=== PATIENT | female | born 1955 | race Caucasian/White ===

== ENCOUNTER → 2022-09-05 14:43 | Outpatient (REF) | payer MEDICARE, OTHER, SELFPAY ==
--- NOTE | 2022-09-05 14:49 | CA_ITS ---
Transthoracic Echocardiogram Patient (Last, First, Middle): Bettina Cotter, Gender: Female Date of : 1955 Age: 67 Procedure Date: 09/05/2022 Procedure Type: Transthoracic Echocardiogram Location: [place] Height: 175.26 cm Weight: 76.2 kg BSA: 1.92 m2 Heart Rate: bpm BP: 124 / 70 mmHg Tube Buffer: TO Referring MD: Jennifer Palmer MD [employer] Fe[employer]: Dominic Saravia MD Symptoms: SOB R06.02 Study Quality: Adequate ECG Rhythm: Sinus Conclusions: - 1. Normal LV systolic function with LVEF of 60-65% with normal filling pattern 2. Mild aortic regurgitation 3. Normal RV systolic pressure 4. Upper limits of normal ascending aortic size 5. No pericardial effusion Findings Left Ventricle Normal left ventricular size, thickness, and systolic function. The visually estimated ejection fraction is between 60-65%. Spectral Doppler is indicative of a normal filling pattern. Right Ventricle Normal right ventricular cavity size and systolic function. Atria Both atria are normal in size. There is lipomatous hypertrophy of the interatrial septum. Interatrial shunt cannot be excluded. Aortic Valve Normal aortic valve structure and function. There is no aortic valve stenosis. There is mild aortic valve regurgitation. Mitral Valve Normal mitral valve structure and function. There is trace mitral valve regurgitation. There is no mitral valve stenosis. Pulmonic Valve The pulmonic valve is likely normal. Tricuspid Valve Normal tricuspid valve structure. There is trace tricuspid valve regurgitation. The right ventricular systolic pressure is normal. The right ventricular systolic pressure is 16 mmHg. Normal right atrial pressure. There is no evidence of pulmonary hypertension. Great Vessels The pulmonary artery was not well visualized. Venous The inferior vena cava is normal in size and collapses greater than 50% with inspiration. Pericardium/Pleural There is no evidence of pericardial effusion. Prior Study Comparison No prior study available for comparison. Measurements 2D Linear Measurements IVSd: 0.90 0.6-0.9/0.6-1.0 cm LVIDd: 4.50 3.9-5.3/4.2-5.9 cm LVIDd Index: 2.34 2.4-3.2/2.2-3.1 cm/m2 LVIDs: 2.13 2.0-3.6 cm LVPWd: 0.88 0.7-1.1 cm LA Diam: 3.40 2.7-3.8/3.0-4.0 cm LAIDs Index: 1.77 1.5-2.3 cm/m2 LV Mass: 163.43 67-162/88-224 g LV Mass Index: 85.12 43-95/49-115 g/m2 LVOT Diam: 2.10 3.0+(-)1.3 cm 2D Systolic Function EF 4C: 66.10 >55% EF 2C: 57.20 >55% EF BiP: 61.40 >55% Mitral Valve MV Pk E: 0.65 MV PK A: 0.55 MV Decel Time: 238.00 E/A: 1.20 E'Lateral: 7.83 E'Medial: 4.68 E/E' Med: 13.90 E/E' Lat: 8.30 PHT: 70.00 MVA PHT: 3.14 Decel [place]: 2.73 Aortic Valve AoV Pk Hemant: 1.38 AoV Mn Hemant: 1.03 AoV VTI: 0.29 AoV Pk Grad: 8.00 Aov Mn Grad: 5.00 BARBARA Cont.VTI: 2.40 AI Pk Hemant: 3.74 AI [place]: 2.02 LVOT LVOT Pk Hemant: 0.85 LVOT Mn Hemant: 0.60 LVOT VTI: 0.20 LVOT Pk Grad: 3.00 LVOT Mn Grad: 2.00 LVOT Diam: 2.10 LVOT Area: 3.46 Diastolic Function MV Pk E: 0.65 MV Pk A: 0.55 E/A: 1.20 E'Medial: 4.68 E/E' Med: 13.90 E' Laterial: 7.83 E/E' Lat: 8.30 Right Ventricle TAPSE (mm): 19.10 TVS' Hemant: 11.90 Tricuspid Valve TR Pk Hemant: 1.83 TR Pk Grad: 13.00 RA Press: 3.00 RVSP: 16.00 Great Vessels Aorta Sinus of Valsalva: 3.28 2.0-3.[address] [place]: 2.73 1.7-3.4 cm Ao Asc: 3.50 2.1-3.4 cm Updated in Other Vendor System with Status of Final Dominic Saravia MD electronically signed on 09/06/2022 10:52:12 AM with status of Final
== END ==
LOC: HO.CARD 14:43
PROVIDERS: PCP Family Medicine; Visit Provider Family Medicine
DX: R06.02 Shortness of breath (principal)
CPT/HCPCS: 93306